=== PATIENT | male | born 1965 | race Caucasian/White ===

== ENCOUNTER 2020-02-09 10:37 | Day surgery (SDC) | payer BC ==
[~2020-02-09 10:37] MED LIST: ALTACE10 MG PO; ENTYVIO300 MG INF; GLIMEPIRIDE4 MG PO; JARDIANCE10 MG PO; LIPITOR20 M1 PO; METFORMIN HCL500 M1 PO; MULTI VIT PO; OZEMPIC2 MG/1.5 M; VITAMIN B1250 MG PO; VITAMIN D32000 UNI2 PO
[2020-02-09 12:42] VITALS: BP 128/72
== END 2020-02-09 12:55 | disposition home or self-care (01) | DRG 387 ==
LOC: ENDO 10:37 → ORM 10:45 → ENDO 12:55 → ORM 14:10
PROVIDERS: ATTEND Internal Medicine Gastroenterology
PROC: 0DBP8ZX Excision of Rectum, Via Natural or Artificial Opening Endoscopic, Diagnostic (ICD-10-PCS; principal; 2020-02-09)
PROC: 0DBK8ZX Excision of Ascending Colon, Via Natural or Artificial Opening Endoscopic, Diagnostic (ICD-10-PCS; 2020-02-09)
PROC: 0DBL8ZX Excision of Transverse Colon, Via Natural or Artificial Opening Endoscopic, Diagnostic (ICD-10-PCS; 2020-02-09)
PROC: 0DBN8ZX Excision of Sigmoid Colon, Via Natural or Artificial Opening Endoscopic, Diagnostic (ICD-10-PCS; 2020-02-09)
PROC: 0DBP8ZX Excision of Rectum, Via Natural or Artificial Opening Endoscopic, Diagnostic (ICD-10-PCS; 2020-02-09)
PROC: 0DBM8ZX Excision of Descending Colon, Via Natural or Artificial Opening Endoscopic, Diagnostic (ICD-10-PCS; 2020-02-09)
DX: K51.211 Ulcerative (chronic) proctitis with rectal bleeding (principal); K51.311 Ulcerative (chronic) rectosigmoiditis with rectal bleeding; K62.1 Rectal polyp; K64.8 Other hemorrhoids; K64.4 Residual hemorrhoidal skin tags; E11.9 Type 2 diabetes mellitus without complications; Z79.84 Long term (current) use of oral hypoglycemic drugs; Z20.828 Contact with and (suspected) exposure to other viral communicable diseases